=== PATIENT | male | born 1985 | race Caucasian/White ===

== ENCOUNTER 2016-12-03 16:28 | Emergency (ER) | payer OTHER ==
--- NOTE | 2016-12-03 16:32 | ED Physician Documentation ---
PD HPI MALE - Stated complaint Stated Complaint: MALE - History obtained from History obtained from: Patient - History of Present Illness Timing - details: Abrupt onset, Still present Associated symptoms: Testiclar pain. No: Dysuria, Urinary frequency, Genital sore / lesion, Scrotal swelling Review of Systems Constitutional: denies: Fever, Chills GI: reports: Nausea. 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 - Present Medications Home Medications: Ambulatory Orders Medication Instructions Recorded Confirmed Cyclobenzaprine [Flexeril] 10 mg PO TID PRN #20 tablet 05/22/16 Hydrocodone/Acetaminophen 1 - 2 each PO Q6H PRN #14 tablet 05/22/16 [Hydrocodon-Acetaminophen 5-325] Ibuprofen [Motrin] 800 mg PO Q8H PRN #30 tablet 05/22/16 Ibuprofen [Motrin] 600 mg PO TID #20 tab 12/03/16 Oxycodone HCl/Acetaminophen 1 each PO Q6H PRN #12 tablet 12/03/16 [Percocet 5-325 mg Tablet] Sulfamethox/Trimeth 800/160 1 each PO BID #14 tablet 12/03/16 [Bactrim Ds 800/160] - Allergies Allergies/Adverse Reactions: Allergies Allergy/AdvReac Type Severity Reaction Status Date / Time No Known Drug Allergies Allergy Verified 07/02/14 12:19 - Social History Does the pt smoke?: No Smoking Status: Never smoker Does the pt drink ETOH?: Yes Does the pt have substance abuse?: No PD ED PE NORMAL - Vitals Vital signs reviewed: Yes - General General: Alert and oriented X 3, No acute distress, Well developed/nourished - Neck Neck: Supple, no meningeal sign, No adenopathy - Cardiac Cardiac: RRR, No murmur - Respiratory Respiratory: No respiratory distress - Abdomen Abdomen: Soft, Non tender - Male Male : Other (right testicle tender without obvious deformity. Has normal lie position) - Derm Derm: Normal color, No rash Results - Vitals Vitals: Oxygen O2 Source Room air - Labs Labs: Laboratory Tests 12/03/16 17:17 Urine Color YELLOW Urine Clarity CLEAR Urine pH 7.0 Ur Specific Felt 1.010 Urine Protein NEGATIVE Urine Glucose (UA) NEGATIVE Urine Ketones NEGATIVE Urine Occult Blood NEGATIVE Urine Nitrite NEGATIVE Urine Bilirubin NEGATIVE Urine Urobilinogen 0.2 (NORMAL) Ur Leukocyte Esterase NEGATIVE Ur Microscopic Review NOT INDICATED Urine Culture Comments NOT INDICATED PD MEDICAL DECISION MAKING - ED course Complexity details: reviewed results (U/S showing some increased flow, small hydrocele, normal blood flow to testicle.), considered differential, d/w patient , d/w family () Departure - Departure Disposition: 01 Home, Self Care Clinical Impression: Right testicular pain, Hydrocele of testis Clinical Impression: (Ruled Out): Testicular torsion Condition: Stable Record reviewed to determine appropriate education?: Yes Instructions: ED Hydrocele Type Not Specified, ED Testicular Pain [facility] Follow-Up: Nannette Parham MD [Primary Care Provider] - Prescriptions: Sulfamethox/Trimeth 800/160 [Bactrim Ds 800/160] 1 each PO BID #14 tablet Ibuprofen [Motrin] 600 mg PO TID #20 tab Oxycodone HCl/Acetaminophen [Percocet 5-325 mg Tablet] 1 each PO Q6H PRN #12 tablet PRN Reason: Pain Comments: scrotal support for comfort. Ibuprofen 3 times daily for 5-7 days. Bactrim antibiotic in case of infection twice daily for 5-7 days. Add pain medication if needed. Recheck with PMD if not improved over the next several days. Discharge Date/Time: 12/03/16 19:42
[2016-12-03] MEDS ORDERED: IBUPROFEN 600 MG TABLET PO STA (16:49)
[2016-12-03] MEDS ORDERED: oxyCOD/ACETAMIN 5 MG/325 MG TABLET PO STA (16:49)
[2016-12-03] MEDS ORDERED: oxyCOD/ACETAMIN 5 MG/325 MG TABLET PO ONE (17:15)
[2016-12-03] MEDS ORDERED: IBUPROFEN 600 MG TABLET PO ONE (17:15)
[2016-12-03 17:25] LABS: BILIRUBIN,URINE NEGATIVE (NEGATIVE)
[2016-12-03 17:26] LABS: UA CHARGE (STRIP ONLY) YES; UR CULTURE IF IND NOT INDICATED
[2016-12-03] MEDS ORDERED: SULFAMETH/TRIMETH DS 800/160 MG TABLET PO STA (19:01)
[2016-12-03] MEDS ORDERED: oxyCODONE/ACET 5/325 Prepack 4 PO STA (19:01)
[2016-12-03] MEDS ORDERED: SULFAMETH/TRIMETH DS 800/160 MG TABLET PO ONE (19:08)
[2016-12-03] MEDS ORDERED: oxyCODONE/ACET 5/325 Prepack 4 PO ONE (19:08)
[2016-12-03 19:09] VITALS: BP 132/71
--- NOTE | 2016-12-03 19:15 | Ultrasound Preliminary Report ---
Exam: US Testicle w/Doppler IMPRESSION: 1. No evidence for testicular torsion. Mild bilateral testicular heterogeneity right greater than lef t. 2. No evidence for right-sided epididymitis or orchitis. 3. Moderate right and mild left hydroceles. 4. Left-sided varicocele. [facility] SITE ID: [id number]
--- NOTE | 2016-12-03 19:17 | Ultrasound Report ---
EXAM: SCROTAL ULTRASOUND EXAM DATE: 12/03/2016 06:19 PM. CLINICAL HISTORY: Abrupt pain right testicle, with tenderness. COMPARISON: None. TECHNIQUE: Real-time scanning was performed with static images obtained. Both color-flow and Doppler spectral analysis were utilized. FINDINGS: Right: Testis: 4.4 x 2.4 cm. Blood flow is within normal limits. Mild testicular heterogeneity. No testicula r masses are seen. Epididymis: 0.9 x 0.7 x 0.9 cm. Normal size and echotexture. No mass or abnormal blood flow. Hydrocele: Moderate hydrocele Varicocele: None. Left: Testis: 4.4 x 2.1 x 2.9 cm. Blood flow is within normal limits. Mild testicular heterogeneity. No te sticular masses are seen. Epididymis: 0.6 x 1 x 1.3 cm. Normal size and echotexture. No images demonstrating blood flow saved. Hydrocele: Mild hydrocele Varicocele: Yes, measures 3.3 mm IMPRESSION: 1. No evidence for testicular torsion. Mild bilateral testicular heterogeneity right greater than lef t. 2. No evidence for right-sided epididymitis or orchitis. 3. Moderate right and mild left hydroceles. 4. Left-sided varicocele. [facility] Referring Provider Line: [phone] SITE ID: [id number]
== END 2016-12-03 19:42 | disposition home or self-care (01) ==
LOC: ED 16:28
DX: N50.811 Right testicular pain (principal); N43.3 Hydrocele, unspecified
CPT/HCPCS: 76870; 81003; 93975; 99283; A9270; 81001; 87086

== ENCOUNTER 2017-07-25 19:37 | Emergency (ER) | payer OTHER ==
[2017-07-25 19:47] VITALS: BP 170/72
[2017-07-25] MEDS ORDERED: BACITRACIN OINT TOP STA (20:01)
[2017-07-25] MEDS ORDERED: LIDOCAINE 1% 2 ML VIAL ONE (20:10)
[2017-07-25] MEDS ORDERED: BACITRACIN OINT TOP ONE (20:14)
--- NOTE | 2017-07-25 20:19 | ED Physician Documentation ---
PD HPI UPPER EXT INJURY - Stated complaint Stated Complaint: FINGER LAC - Chief complaint Chief Complaint: Laceration - History obtained from History obtained from: Patient - History of Present Illness Location: Right, Finger Type of injury: Laceration Where injury occurred: Home Timing - onset: Today Timing - details: Abrupt onset Worsened by: Moving, Palpating Similar symptoms before: Has not had sx before Recently seen: Not recently seen - Additonal information Additional information: Patient is a 31 year old male with no significant past medical history who is presenting to the emergency department for a finger laceration. Patient states that he was washing dishes tonight when he cut his right hand with a knife. patient states that he is up to date with his tetanus and denies any other trauma. Review of Systems Constitutional: denies: Fever Eyes: reports: Reviewed and negative Ears: reports: Reviewed and negative Nose: reports: Reviewed and negative Throat: reports: Reviewed and negative Cardiac: reports: Reviewed and negative Respiratory: reports: Reviewed and negative GI: reports: Reviewed and negative : reports: Reviewed and negative Skin: reports: Laceration (s) Musculoskeletal: reports: Reviewed and negative Neurologic: reports: Reviewed and negative Psychiatric: reports: Reviewed and negative Endocrine: reports: Reviewed and negative PD PAST MEDICAL HISTORY - Past Medical History Cardiovascular: None Respiratory: None Endocrine/Autoimmune: None GI: None : None HEENT: None Psych: None Musculoskeletal: Other Derm: None - Past Surgical History Past Surgical History: No Ortho: Shoulder arthroplasty, 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 - Present Medications Home Medications: Ambulatory Orders Medication Instructions Recorded Confirmed PARoxetine HCl [Paroxetine HCl] 1 tab PO DAILY 07/25/17 07/25/17 - Allergies Allergies/Adverse Reactions: Allergies Allergy/AdvReac Type Severity Reaction Status Date / Time No Known Drug Allergies Allergy Verified 07/25/17 19:41 - Social History Does the pt smoke?: No Smoking Status: Never smoker Does the pt drink ETOH?: Yes Does the pt have substance abuse?: No - Immunizations Immunizations are current?: Yes PD ED PE NORMAL - General General: Alert and oriented X 3, No acute distress - HEENT HEENT: Atraumatic, PERRL - Neck Neck: Supple, no meningeal sign - Cardiac Cardiac: RRR, No murmur - Respiratory Respiratory: No respiratory distress - Abdomen Abdomen: Non distended - Neuro Neuro: Alert and oriented X 3, No motor deficit, No sensory deficit, Normal speech PD ED PE EXPANDED - Extremities Extremities: Right finger(s) (2cm laceration of mcp joint of dorsal surface of right hand), Sensory intact, Vascular intact, Tendon intact Results - Vitals Vitals: Vital Signs - 24 hr 07/25/17 19:40 Temperature 37.2 C Heart Rate 81 Respiratory 16 Rate Blood Pressure 170/72 H O2 Saturation 97 Oxygen O2 Source Room air Procedures - Laceration (location) right hand Length in cm: 2 Wound type: Curved Neurovascular status: Sensory intact, Motor intact, Vascular intact Tendon involvement: Tendon intact Anesthesia: Lidocaine 1% Deep layer closure: Vicryl Skin layer closure: Size #-0 - enter number (5), Sutures - enter # (3) Other: Patient tolerated well, Neurovascular intact, Dressing applied, Tetanus UTD Complexity: Simple PD MEDICAL DECISION MAKING - ED course Complexity details: reviewed old records, reviewed results, re-evaluated patient , considered differential, d/w patient ED course: Patient was seen and examined at bedside. Patient's laceration was repaired as described above. Patient required no further work up and was table for discharge with outpatient follow up. Departure - Departure Disposition: 01 Home, Self Care Clinical Impression: Laceration Condition: Good Instructions: ED Laceration Hand Follow-Up: Nannette Parham MD [Primary Care Provider] - As Needed Comments: Your symptoms today are being caused by a finger lacertion. You will need to keep it clean and dry. You can apply topical antibiotics as needed. You can take motrin or tyelnol as needed for pain. You should monitor for signs of infection. You should follow up with your pmd as needed. The sutures will dissolve on their own. You may return to the emergency department at any time for new, worsening or uncontrollable symptoms. Discharge Date/Time: 07/25/17 20:23
== END 2017-07-25 20:23 | disposition home or self-care (01) ==
LOC: ED 19:37
DX: S61.219A Laceration without foreign body of unspecified finger without damage to nail, initial encounter (principal); W45.8XXA Other foreign body or object entering through skin, initial encounter; Y93.G1 Activity, food preparation and clean up
CPT/HCPCS: 12001; 99282; 99283; A9270

== ENCOUNTER 2018-02-08 08:02 | Day surgery (SDC) | payer OTHER ==
[2018-02-08] MEDS ORDERED: LACTATED RINGERS 1,000 ML IV ONE ×3 (08:08→11:15)
[2018-02-08] MEDS ORDERED: BUPIVACAINE 0.5% PF 30 ML VIAL ONE (08:10)
[2018-02-08] MEDS ORDERED: LIDOCAINE 1%-EPI 1:100000 30 ML MDV ONE (08:10)
[2018-02-08] MEDS ORDERED: BUPIVACAINE 0.5% PF 30 ML VIAL INFIL ONE (09:58)
[2018-02-08] MEDS ORDERED: LIDOCAINE 1%-EPI 1:100000 20 ML MDV SUBQ ONE (09:58)
[2018-02-08] MEDS ORDERED: ROCURONIUM 50 MG/5 ML VIAL IVP ONE (10:00)
[2018-02-08] MEDS ORDERED: PROPOFOL 200 MG/20 ML VIAL IVP ONE (10:00)
[2018-02-08] MEDS ORDERED: fentaNYL 100 MCG/2 ML VIAL IVP ONE (10:00)
[2018-02-08] MEDS ORDERED: ONDANSETRON 4 MG/2 ML VIAL IVP ONE (10:00)
[2018-02-08] MEDS ORDERED: ACETAMINOPHEN 1,000 MG/100 ML 100 ML IV ONE (10:00)
[2018-02-08] MEDS ORDERED: LIDOCAINE-MPF 2% 5 ML VIAL IM ONE (10:00)
[2018-02-08] MEDS ORDERED: ceFAZolin 1 GM VIAL IV ONE (10:00)
--- NOTE | 2018-02-08 10:16 | OPERATIVE REPORT ---
Operative Report - General Procedure Date: 02/08/18 Pre-Op Diagnosis: posterior neck mass Procedure Performed: Excision of posterior neck mass Post Op Diagnosis: same - Procedure Note Primary Surgeon: Blanca Anesthesia Provider: Ramy Anesthesia Technique: General ET tube - Other Other Information/Narrative: Findings: After obtaining informed consent and the patient was brought into the operating room and intubated by anesthesia. He was subsequently positioned in the prone position. He was then prepped and draped in the usual sterile fashion and a timeout was taken according to protocol. 1 g of Ancef had been administered. A transverse incision of approximately 4 cm was created overlying the midportion of the mass. This was deepened down through the skin to the underlying fatty tissue. Skin flaps were then created in the cephalad caudad and lateral locations circumferentially dissecting around the underlying fatty mass. The mass was noted to extend down towards the posterior portion of the spine.The mass was then removed in pieces so as not to have to extend the incision. It was eventually completely excised. Areas of bleeding in the muscle bed and subcutaneous tissue were controlled with electrocautery. The size of the mass excised was approximately 7 cm. 20 cc of local anesthetic was administered.The cavity was then closed with interrupted 3-0 Vicryl and running 4-0 Monocryl. Dermabond was then applied. Patient was subsequently extubated and brought into the operating room in stable condition. Estimated blood loss: 20 cc.
[2018-02-08] MEDS: fentaNYL 100 MCG/2 ML VIAL ONE ×3 (10:20→10:37)
[2018-02-08] MEDS ORDERED: KETOROLAC 30 MG/ML VIAL ONE (10:31)
[2018-02-08] MEDS ORDERED: oxyCOD/ACETAMIN 5 MG/325 MG TABLET PO ONE (11:05)
[2018-02-08 11:17] VITALS: BP 130/63
== END 2018-02-08 08:03 | disposition home or self-care (01) ==
LOC: SDS 08:02
PROVIDERS: ATTEND Surgery
PROC: 0JB70ZZ Excision of Back Subcutaneous Tissue and Fascia, Open Approach (ICD-10-PCS; principal; 2018-02-08 09:15)
DX: R22.1 Localized swelling, mass and lump, neck (principal); F41.9 Anxiety disorder, unspecified
CPT/HCPCS: 21554; A9270; J0131; J7120

== ENCOUNTER 2018-02-12 21:26 | Emergency (ER) | payer OTHER ==
--- NOTE | 2018-02-12 23:09 | ED Physician Documentation ---
PD HPI WOUND RECHECK - Stated complaint Stated Complaint: NECK PX/LUMP - Chief complaint Chief Complaint: Wound - Histroy obtained from History obtained from: Patient - History of Present Illness Location: Neck (back of neck at upper thoracic area - with swelling and tenderness. Had lipoma removed 4 days ago and is having increasing swelling at area. Today is painful/pressured and some redness of the skin. Tried to get into provider but given appt for couple days.) Timing - onset: How many days ago (3 days ago started with some swelling in the area (the day after the procedure).) Associated symptoms: Redness, Swelling. 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:  - Present Medications Home Medications: Ambulatory Orders Medication Instructions Recorded Confirmed Venlafaxine HCl 37.5 mg PO BID 02/06/18 02/08/18 Doxycycline Monohydrate 100 mg PO BID #14 tablet 02/12/18 - Allergies Allergies/Adverse Reactions: Allergies Allergy/AdvReac Type Severity Reaction Status Date / Time No Known Drug Allergies Allergy Verified 02/12/18 21:47 - Social History Does the pt smoke?: No Smoking Status: Never smoker Does the pt drink ETOH?: Yes Does the pt have substance abuse?: No - Immunizations Immunizations are current?: Yes - POLST Patient has POLST: No PD ED PE NORMAL - Vitals Vital signs reviewed: Yes - General General: Alert and oriented X 3, No acute distress, Well developed/nourished - Neck Neck: Supple, no meningeal sign, No adenopathy, Other (posterior neck/upper back with surgical wound closed well and has initial healing. Under it is humped skin with fluctuant feeling and some redness of the skin. Tender. Consider seroma versus infection. ) - Cardiac Cardiac: RRR, No murmur - Respiratory Respiratory: Clear bilaterally - Abdomen Abdomen: Soft, Non tender - Derm Derm: Normal color, Warm and dry - Neuro Neuro: Alert and oriented X 3, No motor deficit, No sensory deficit, Normal speech Results - Vitals Vitals: Vital Signs - 24 hr 02/12/18 02/12/18 21:35 23:45 Temperature 37.0 C 36.5 C Heart Rate 90 73 Respiratory 16 15 Rate Blood Pressure 132/64 H 147/81 H O2 Saturation 97 98 Oxygen O2 Source Room air Procedures - General procedure General procedure: Draining seroma - local anesth with lidocaine and then aspirated the fluid going adjacent to the prior wound closure, and aspirated 40 ml of watery, clear , red hued fluid. He felt much better with the pressure lessened. PD MEDICAL DECISION MAKING - ED course Complexity details: considered differential (fluid out is watery with red color , not appearing purulent. Seems c/w seroma, but there was some redness of the skin overlying and the area tender, so consider early infection of it. Will start abx pending culture. He felt a lot better with fluid drained. ), d/w patient - Sepsis Event Vital Signs: Vital Signs - 24 hr 02/12/18 02/12/18 21:35 23:45 Temperature 37.0 C 36.5 C Heart Rate 90 73 Respiratory 16 15 Rate Blood Pressure 132/64 H 147/81 H O2 Saturation 97 98 Oxygen O2 Source Room air Departure - Departure Disposition: 01 Home, Self Care Clinical Impression: Postoperative seroma of skin after dermatologic procedure Condition: Stable Record reviewed to determine appropriate education?: Yes Instructions: ED Seroma Post Op Follow-Up: MAN HOOK MD [Primary Care Provider] - Prescriptions: Doxycycline Monohydrate 100 mg PO BID #14 tablet Comments: This looks like sterile seroma fluid being watery with just a bit of blood. However there would be concern for early infection as well. We will treated with doxycycline antibiotic twice daily for a week though that can be abbreviated if the culture result is negative in 2 days. Use Tylenol or ibuprofen if needed for pains. Follow-up with your provider who did the procedure in a few days. Discharge Date/Time: 02/12/18 23:45
[2018-02-12] MEDS ORDERED: DOXYCYCLINE 100 MG TABLET PO STA (23:31)
[2018-02-12 23:52] VITALS: BP 147/81
== END 2018-02-12 23:45 | disposition home or self-care (01) ==
LOC: ED 21:26
DX: L76.33 Postprocedural seroma of skin and subcutaneous tissue following a dermatologic procedure (principal); Y83.8 Other surgical procedures as the cause of abnormal reaction of the patient, or of later complication, without mention of misadventure at the time of the procedure
CPT/HCPCS: 10140; 87070; 87205; 99283; A9270

== ENCOUNTER 2018-02-17 11:39 | Emergency (ER) | payer OTHER ==
[2018-02-17 11:44] VITALS: BP 148/73
--- NOTE | 2018-02-17 12:24 | ED Physician Documentation ---
History of Present Illness - Stated complaint Stated Complaint: POST SURGERY COMPLICATIONS - Chief complaint Chief Complaint: General - History obtained from History obtained from: Patient - History of Present Illness Timing: Other (Recent lipoma removal from midline upper back and had a seroma that was drained here a few days ago and it has recurred. Culture from the seroma originally was no growth. He is on doxycycline without issue. 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:  - Present Medications Home Medications: Ambulatory Orders Medication Instructions Recorded Confirmed Venlafaxine HCl 37.5 mg PO BID 02/06/18 02/08/18 Doxycycline Monohydrate 100 mg PO BID #14 tablet 02/12/18 - Allergies Allergies/Adverse Reactions: Allergies Allergy/AdvReac Type Severity Reaction Status Date / Time No Known Drug Allergies Allergy Verified 02/17/18 11:44 - Social History Does the pt smoke?: No Smoking Status: Never smoker Does the pt drink ETOH?: Yes Does the pt have substance abuse?: No - Immunizations Immunizations are current?: Yes - POLST Patient has POLST: No PD ED PE NORMAL - Vitals Vital signs reviewed: Yes - General General: Alert and oriented X 3, No acute distress - Neck Neck: Other (Over the low cervical spine there is a clean dry and intact surgical incision with an underlying fluctuant mass. Hard to tell if it is red per se because he has sunburn in the area but it is not overtly tender.) - Neuro Neuro: Alert and oriented X 3, Normal speech Results - Vitals Vitals: Vital Signs - 24 hr 02/17/18 11:42 Temperature 36.5 C Heart Rate 69 Respiratory 18 Rate Blood Pressure 148/73 H O2 Saturation 98 Oxygen O2 Source Room air Procedures - General procedure General procedure: After informed consent the area was prepped with iodine and then locally infiltrated with 3 ml of lidocaine with epinephrine and then using an 18-gauge needle the seroma was aspirated, a total of 55 mL's of bloody fluid which did not appear purulent with relief of his symptoms. PD MEDICAL DECISION MAKING - Sepsis Event Vital Signs: Vital Signs - 24 hr 02/17/18 11:42 Temperature 36.5 C Heart Rate 69 Respiratory 18 Rate Blood Pressure 148/73 H O2 Saturation 98 Oxygen O2 Source Room air Departure - Departure Disposition: 01 Home, Self Care Clinical Impression: Postoperative seroma of skin after dermatologic procedure Condition: Good Record reviewed to determine appropriate education?: Yes Instructions: ED Seroma Post Op Comments: Follow-up with Dr. Rios later this week as scheduled. Return if worse. Your blood pressure was elevated today on check into the emergency department. This does not mean that you have hypertension, it is a common phenomenon to come to the emergency department and have elevated blood pressure. I recommend that you see your primary care physician within the week to have it rechecked when you are feeling better.
[2018-02-17] MEDS ORDERED: LIDOCAINE 1%-EPI 1:100000 30 ML MDV ONE (12:26)
== END 2018-02-17 12:34 | disposition home or self-care (01) ==
LOC: ED 11:39
DX: L76.33 Postprocedural seroma of skin and subcutaneous tissue following a dermatologic procedure (principal); R03.0 Elevated blood-pressure reading, without diagnosis of hypertension
CPT/HCPCS: 10160; 99282

== ENCOUNTER 2018-02-20 21:11 | Emergency (ER) | payer OTHER ==
[2018-02-20 21:18] VITALS: BP 137/72
--- NOTE | 2018-02-20 22:03 | ED Physician Documentation ---
PD HPI WOUND RECHECK - Stated complaint Stated Complaint: GROWTH ON BACK - Chief complaint Chief Complaint: Wound - Histroy obtained from History obtained from: Patient - History of Present Illness Location: Back (He has a known postoperative seroma with previous negative cultures, it has been drained twice already and has reaccumulated. He is seeing his surgeon tomorrow.) Review of Systems Constitutional: reports: Sweats. 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:  - Present Medications Home Medications: Ambulatory Orders Medication Instructions Recorded Confirmed Venlafaxine HCl 37.5 mg PO BID 02/06/18 02/08/18 Doxycycline Monohydrate 100 mg PO BID #14 tablet 02/12/18 - Allergies Allergies/Adverse Reactions: Allergies Allergy/AdvReac Type Severity Reaction Status Date / Time No Known Drug Allergies Allergy Verified 02/20/18 21:18 - Social History Does the pt smoke?: No Smoking Status: Never smoker Does the pt drink ETOH?: Yes Does the pt have substance abuse?: No - Immunizations Immunizations are current?: Yes - POLST Patient has POLST: No PD ED PE NORMAL - Vitals Vital signs reviewed: Yes - General General: Alert and oriented X 3, No acute distress - Extremities Extremities: Other (Over the low C-spine there is a clean dry and intact incision with underlying fluctuant mass that is smaller than it was on the my last evaluation) - Neuro Neuro: Alert and oriented X 3, Normal speech - Psych Psych: Normal mood, Normal affect Results - Vitals Vitals: Vital Signs - 24 hr 02/20/18 21:15 Temperature 36.4 C L Heart Rate 77 Respiratory 17 Rate Blood Pressure 137/72 H O2 Saturation 99 Oxygen O2 Source Room air Procedures - Abscess I&D (location) Seroma pos op Preparation: Betadine, Lidocaine 1% Incision: Needle aspiration (40ml bloody fluid, not purulent) Other: Pt tolerated well, Dressing applied PD MEDICAL DECISION MAKING - Sepsis Event Vital Signs: Vital Signs - 24 hr 02/20/18 21:15 Temperature 36.4 C L Heart Rate 77 Respiratory 17 Rate Blood Pressure 137/72 H O2 Saturation 99 Oxygen O2 Source Room air Departure - Departure Disposition: 01 Home, Self Care Clinical Impression: Postoperative seroma of skin after dermatologic procedure Condition: Good Record reviewed to determine appropriate education?: Yes Instructions: ED Seroma Post Op Comments: Follow-up with your surgeon tomorrow as scheduled. Your blood pressure was elevated today on check into the emergency department. This does not mean that you have hypertension, it is a common phenomenon to come to the emergency department and have elevated blood pressure. I recommend that you see your primary care physician within the week to have it rechecked when you are feeling better.
[2018-02-20] MEDS ORDERED: BUFFERED LIDOCAINE 10 ML SYRINGE ONE (22:16)
== END 2018-02-20 22:15 | disposition home or self-care (01) ==
LOC: ED 21:11
DX: L76.33 Postprocedural seroma of skin and subcutaneous tissue following a dermatologic procedure (principal); R03.0 Elevated blood-pressure reading, without diagnosis of hypertension
CPT/HCPCS: 10060; 99282; 99283

== ENCOUNTER 2020-03-28 13:02 | Emergency (ER) | payer OTHER ==
--- NOTE | 2020-03-28 14:07 | ED Physician Documentation ---
PD HPI UPPER EXT INJURY - Stated complaint Stated Complaint: R HAND LAC - Chief complaint Chief Complaint: Laceration - History obtained from History obtained from: Patient - History of Present Illness Location: Right, Finger (3rd and 4th digit laceration with saw.) Type of injury: Laceration Where injury occurred: Home Timing - onset: Today Timing - duration: Hours (1) Timing - details: Abrupt onset Pain level max: 5 Pain level now: 3 Improved by: Rest Worsened by: Moving, Palpating Associated symptoms: No: Weakness, Numbness, Tingling, Swelling Contributing factors: No: Anticoagulated Recently seen: Not recently seen - Additonal information Additional information: Patient is right-handed. Tetanus up-to-date. Accidentally cut the third and fourth digits with a saw. Review of Systems Constitutional: denies: Fever, Chills GI: denies: Nausea, Vomiting, Diarrhea Skin: reports: Laceration (s) PD PAST MEDICAL HISTORY - Past Medical History Cardiovascular: None Respiratory: None Endocrine/Autoimmune: None GI: None : None HEENT: None Psych: Depression, Anxiety Musculoskeletal: Other Derm: None - Past Surgical History Past Surgical History: Yes Ortho: Shoulder arthroplasty, Other /CAVALRY SCOUT:  - Present Medications Home Medications: Ambulatory Orders Medication Instructions Recorded Confirmed Venlafaxine HCl 37.5 mg PO BID 02/06/18 02/08/18 Doxycycline Monohydrate 100 mg PO BID #14 tablet 02/12/18 Bacitracin Zinc Oint 1 applic TOP BID #1 tube 03/28/20 - Allergies Allergies/Adverse Reactions: Allergies Allergy/AdvReac Type Severity Reaction Status Date / Time No Known Drug Allergies Allergy Verified 02/20/18 21:18 - Social History Does the pt smoke?: No Smoking Status: Never smoker Does the pt drink ETOH?: Yes Does the pt have substance abuse?: No - Immunizations Immunizations are current?: Yes - POLST Patient has POLST: No PD ED PE NORMAL - Vitals Vital signs reviewed: Yes - General General: Alert and oriented X 3, No acute distress - HEENT HEENT: Moist mucous membranes - Derm Derm: Warm and dry - Extremities Extremities: Other (R hand - laceration to distal aspect of the 3rd and 4th digits. 3rd digit 0.5cm superficial laceration. 4th digit 1.5cm flap laceration to the distal tip. ) - Neuro Neuro: Alert and oriented X 3 - Psych Psych: Normal mood, Normal affect Results - Vitals Vitals: Vital Signs - 24 hr 03/28/20 03/28/20 13:23 15:11 Temperature 37.2 C 37.0 C Heart Rate 67 66 Respiratory 16 16 Rate Blood Pressure 146/88 H 140/80 H O2 Saturation 99 100 Oxygen O2 Source Room air - Rads (name of study) Right hand x-ray Radiology: Prelim report reviewed, EMP read contemporaneously, See rad report (No acute bony abnormalities) Procedures - Laceration (location) Right Fourth digit Length in cm: 1.5 Wound type: Flap, Superficial, Clean Neurovascular status: Sensory intact, Motor intact, Vascular intact Tendon involvement: Tendon intact Anesthesia: Lidocaine 1% Wound Preparation: Irrigated copiously NS, Wound explored, To the base Skin layer closure: Nylon, Interrupted, Size #-0 - enter number (4) Other: Patient tolerated well, No complications, Neurovascular intact, Dressing applied, Tetanus UTD Complexity: Simple PD MEDICAL DECISION MAKING - ED course Complexity details: reviewed results, re-evaluated patient, considered differential, d/w patient ED course: Fourth digit laceration was repaired. Third digit laceration does not need any closure. No acute findings on x-ray. Tetanus up-to-date. Warnings of infection and instructions on wound care given at bedside. Also counseled on how to minimize scarring. Patient counseled regarding signs and symptoms for which I believe and urgent re-evaluation would be necessary. Patient with good understanding of and agreement to plan and is comfortable going home at this time This document was made in part using voice recognition software. While efforts are made to proofread this document, sound alike and grammatical errors may occur. Departure - Departure Disposition: 01 Home, Self Care Clinical Impression: Finger laceration Qualifiers: Encounter type: initial encounter Finger: unspecified finger Damage to nail status: without damage Foreign body presence: without foreign body Laterality: right Qualified Code(s): S61.219A - Laceration without foreign body of unspecified finger without damage to nail, initial encounter Condition: Good Instructions: ED Laceration Hand Follow-Up: your,doctor in 10-14 days for suture removal [Other] Prescriptions: Bacitracin Zinc Oint 1 applic TOP BID #1 tube Comments: You can use the antibiotic ointment as prescribed. Return if you worsen. Keep the wound clean. Return if you notice redness, swelling or drainage from the wound. The stitches will need to be removed in approximately 10 to 14 days with your doctor. Discharge Date/Time: 03/28/20 15:12
[2020-03-28] MEDS ORDERED: BUFFERED LIDOCAINE 10 ML SYRINGE SUBQ STA (14:39)
[2020-03-28] MEDS ORDERED: BACITRACIN ZINC OINT 1 PACKET TOP STA (14:56)
[2020-03-28 15:12] VITALS: BP 140/80
--- NOTE | 2020-03-28 15:12 | XRAY Report ---
PROCEDURE: Finger(s) RT INDICATIONS: 3rd and 4th digit laceration with saw TECHNIQUE: AP hand, views of the right finger(s) acquired. COMPARISON: None available FINDINGS: Bones: No fractures or dislocations. No suspicious bony lesions. Soft tissues: Soft tissue injury is seen, particularly involving the distal aspect of the fourth fin joelle. IMPRESSION: Soft tissue injury, without a definite associated bony injury seen by plain film. Reviewed by: Lance Cheng MD on 03/28/2020 2:11 PM RAMBO Approved by: Lance Cheng MD on 03/28/2020 2:11 PM AKARON Station ID: [id number]
== END 2020-03-28 15:12 | disposition home or self-care (01) ==
LOC: ED 13:02
DX: S61.214A Laceration without foreign body of right ring finger without damage to nail, initial encounter (principal); S61.212A Laceration without foreign body of right middle finger without damage to nail, initial encounter; W31.2XXA Contact with powered woodworking and forming machines, initial encounter; Y93.89 Activity, other specified; Y92.009 Unspecified place in unspecified non-institutional (private) residence as the place of occurrence of the external cause
CPT/HCPCS: 12001; 73140; 99282; 99283; A9270